=== PATIENT | male | born 1950 | race Caucasian/White ===

== ENCOUNTER 2020-01-23 11:40 | Inpatient (IN) | payer OTHER ==
[~2020-01-23] VITALS: Ht 182.9 cm; Wt 106.6 kg
[2020-01-23] VITALS (10 sets, daily range): BP systolic 145–173; BP diastolic 74–91
[2020-01-23] MEDS ORDERED: ALLOPURINOL 10100 M2 PO (11:56)
[2020-01-23] MEDS ORDERED: PRINIVIL20 M1 PO (11:57)
[2020-01-23] MEDS ORDERED: PREDNISONE 5 MG5 M1 PO (11:57)
[2020-01-23] MEDS ORDERED: ASA81BEC PO (11:57)
[2020-01-23] MEDS ORDERED: ZETIA10 MG PO (11:58)
[2020-01-23] MEDS ORDERED: FISH OIL 1,0001 EAC9 PO (11:58)
[2020-01-23] MEDS ORDERED: VITAMIN D310 MC2 PO (11:58)
[2020-01-23 12:04] LABS: URINE BILIRUBIN NEGATIVE (Negative); URINE BLOOD 1+ (Negative); URINE CLARITY CLEAR; URINE COLOR YELLOW; URINE GLUCOSE-RANDOM* NEGATIVE (Negative); URINE KETONES NEGATIVE (Negative); URINE LEUKOCYTES-REFLEX TRACE (Negative); URINE NITRITE-REFLEX NEGATIVE (Negative); URINE PROTEIN (DIPSTICK) 1+ (Negative); URINE UROBILINOGEN 0.2 E.U./dl (0.2-1.0)
[2020-01-23 12:12] LABS: BACTERIA-REFLEX 1-9 Few /HPF (None Seen); CASTS None Seen /LPF (None Seen); CRYSTALS None Seen /LPF (None Seen); SQUAMOUS 0-3 Few /LPF (0-3); URINE RBC None Seen /HPF (0-2); URINE WBC-REFLEX 0-5 Rare /HPF (0-5)
[2020-01-23 12:18] LABS: ABSOLUTE NEUTROPHILS 9.2 thou/uL (1.4-8.2); BASOPHILS 0.4 % (0.0-2.0); EOSINOPHILS 0.6 % (0.0-3.0); HEMATOCRIT 44.1 % (42.0-52.0); LYMPHOCYTES 11.9 % (24.0-44.0); MCH 29.5 pg (26.0-34.0); MCHC 33.9 g/dL (28.0-37.0); MONOCYTES 8.4 % (1.0-8.0); PLATELET COUNT 199 thou/uL (150-400); POLYS 78.7 % (36.0-66.0); RBC 5.07 mil/uL (4.50-6.00); RDW 14.5 % (10.5-14.5); WBC 11.7 thou/uL (4.0-11.0)
[2020-01-23 12:25] LABS: CALCIUM 9.9 mg/dL (8.5-10.1); CREATININE 1.2 mg/dL (0.7-1.3); POTASSIUM 4.2 mmol/L (3.5-5.1)
[2020-01-23 12:32] LABS: ALBUMIN 3.8 g/dL (3.4-5.0); TOTAL BILIRUBIN 2.7 mg/dL (<0.1-1.0)
[2020-01-24 00:44] VITALS: BP 164/78
--- NOTE | 2020-01-24 02:31 | NUR ---
PT CARE ASSUMED WHEN PT WAS RETURNING FROM THE SURGERY.PT IS A/O X4.PT IS ON ICE CHIPS AND SIPS OF FLUIDS WITH MEDS.PT C/O OF PAIN AND PAIN MANAGED WITH HYDROCODONE.PT HAD REMOVAL OF LT 3RD NAIL AND APPENDECTOMY WITH 3 LAP SITE I/C/D.PT IS ON 2L OF O2 NASAL CANULA.PT USED URINAL.WILL CONTINUE TO MONITOR POC
[2020-01-24 04:21] LABS: HEMATOCRIT 41.8 % (42.0-52.0); HEMOGLOBIN 13.7 gm/dL (14.0-18.0); MCH 28.7 pg (26.0-34.0); MCHC 32.8 g/dL (28.0-37.0); MCV 87.5 fL (80.0-100.0); RBC 4.78 mil/uL (4.50-6.00); RDW 14.6 % (10.5-14.5); WBC 12.3 thou/uL (4.0-11.0)
[2020-01-24 04:38] LABS: CALCIUM 8.8 mg/dL (8.5-10.1); CREATININE 1.2 mg/dL (0.7-1.3); POTASSIUM 3.9 mmol/L (3.5-5.1); TOTAL BILIRUBIN 3.4 mg/dL (<0.1-1.0)
[2020-01-24 07:25] VITALS: BP 137/84
--- NOTE | 2020-01-24 10:25 | NUR ---
Received awake on bed. Due medications given as prescribed, able to swallow meds w/o difficulty. On room air. Vital signs stable. On nothing per orem except medications and sips of water; ice chips given as well- a/w rounds from surgeon re: progressing diet. A+Ox4. Able to use urinal to pass urine; continent. With D5W0.45%NS+10meq at 80cc/hr, infusing well at L upper arm. Visited by relative today. With 3 abdominal lap sites with bandaid, dressing C/D/I.
[2020-01-24 14:55] VITALS: BP 136/84
[2020-01-24 17:12] LABS: DIRECT BILIRUBIN 0.4 mg/dL (<0.1-0.2); TOTAL BILIRUBIN 3.3 mg/dL (<0.1-1.0)
[2020-01-24 18:56] VITALS: BP 111/78
--- NOTE | 2020-01-25 02:13 | NUR ---
PT CARE ASSUMED WITH FAMILY MEMBERS IN THE RPPM AT 1900.PT ON ROOM AIR.PT IS A/O X4.PT IS UP WITH X1 ASSIST.PT IS ON CLEAR LIQUID DIET .PT IV ACCESS ON FARRAH WITH D5W 0.45NS KCL 10MEQ AT 80CC/HR AND ZOSYN.PT DENIED N/V.PT USES URINAL.PT REFUSED FLATUS AND URINATE OK.WILL CONTINUE POC TILL END OF SHIFT
[2020-01-25 05:19] LABS: HEMATOCRIT 42.2 % (42.0-52.0); HEMOGLOBIN 13.6 gm/dL (14.0-18.0); MCH 28.4 pg (26.0-34.0); MCHC 32.2 g/dL (28.0-37.0); MCV 88.1 fL (80.0-100.0); RBC 4.79 mil/uL (4.50-6.00); RDW 14.7 % (10.5-14.5); WBC 11.8 thou/uL (4.0-11.0)
[2020-01-25 07:27] VITALS: BP 141/79
--- NOTE | 2020-01-25 10:22 | NUR ---
Received awake on bed. Due medications given as prescribed, able to swallow meds w/o difficulty. On room air. On clear liquid diet- offered but pt prefers to have ice chips for now, will inform nurse once she wants any from the clear liquid menu. With daughter at the bedside. Continent with urine, still no flatus and bowel movement noted. With d50.45%NS + 10meq KCL at 80cc/hr, infusing well at 80cc/hr on his Left upper arm. With 3 abdominal lap sites, with bandaid on, dressing C/D/I. Complained of pain and nausea, PRN meds given as prescribed. With SCDs on. Assisted in ADLs. Pt complained of bloatedness and with abdominal distention noted- Called Dr Forbes's office at 9:51, assistant secretary said Dr Forbes is currently in surgery but will let him know about it- pt updated as well. To continue monitoring patient.
--- NOTE | 2020-01-25 10:48 | NUR ---
PT ADMITTED RELATED TO ACUTE APPENDICITIS. PT IS POD# 2. CM MET WITH PT AND DTR LANIE AT BEDSIDE THIS DAY. PT IS A&O X4. CM ROLE INTRODCUED. PT INDICATED HE LIVES IN A HOUSE ON [place] WITH NO STEPS TO ENTER AND NO STEPS INSIDE. 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 PT INDICATED NO DME OR HH HX. PT IS STILL ON CLEAR LIQUIDS AND ABD IS STILL DISTENDED. CM TO FOLLOW INDICATED WITH DC PLANNING.
--- NOTE | 2020-01-25 16:07 | PATH ---
[facility] [address] [place] [address] PATHOLOGY RPT PROCEDURE Name: TAY DEVINE Room #: 449-I ADM IN M.R.#: [id number] Admission: 01/23/20 Date of : 50 Discharge: Report #: [id number] Path Case #: [id number] L[facility] Accession Number: [id number] . 01 Material submitted: . appendix - APPENDIX . 01 Clinical history: . acute appendicitis . 02 Diagnosis: Appendix, appendectomy: - Marked acute appendicitis along with marked serositis and congestion. - Fibrous obliteration. (IUV:pit 01/25/2020) . QTP 01/25/2020 1417 Local . 02 Electronically signed: . Cheryle Dinh MD, Pathologist NPI- [id number] . 01 Gross description: . The specimen is received in formalin, labeled "Tay Devine, appendix" and consists of an appendix measuring 5.0 cm in length and up to 0.8 cm in diameter with mesoappendix measuring 1.8 cm thick. The serosa is markedly hemorrhagic with fibrous adhesions. The margin is closed with a line of ama and inked black. Sectioning reveals a hemorrhagic lumen with no gross lesions. Grips sections are submitted in A1. (SDY; 01/24/2020) SYU/SYU 01/24/2020 1723 Local . 02 Pathologist provided ICD-10: K35.80 . 02 CPT . 589145 Specimen Comment: A courtesy copy of this report has been sent to [phone] Specimen Comment: Report sent to Performed at: [address], [place] [id number] MD Pedro Gallagher MD Phone: [phone] Performed at: [address] [id number] MD Cheryle Dinh MD Phone: [phone]
[2020-01-25 16:30] VITALS: BP 152/80
[2020-01-25 19:40] VITALS: BP 119/67
[2020-01-26 05:58] LABS: HEMATOCRIT 40.1 % (42.0-52.0); HEMOGLOBIN 12.9 gm/dL (14.0-18.0); MCH 28.5 pg (26.0-34.0); MCHC 32.2 g/dL (28.0-37.0); MCV 88.3 fL (80.0-100.0); RBC 4.55 mil/uL (4.50-6.00); RDW 14.5 % (10.5-14.5); WBC 10.3 thou/uL (4.0-11.0)
[2020-01-26 06:09] LABS: CALCIUM 8.4 mg/dL (8.5-10.1); CREATININE 1.6 mg/dL (0.7-1.3); POTASSIUM 4.3 mmol/L (3.5-5.1)
--- NOTE | 2020-01-26 07:20 | NUR ---
ASSUMED PT CARE AROUND 1914. AXOX4. IV INFILTRATED RA. ELEVATED AND ICE PACKED. IV RESITED TO LFA 20G. PT REPORTS PASSING GAS. KEPT NPO. NO S/S ACUTE DISTRESS NOTED OR REPORTED AT THIS TIME. CARE TRANSFERRED TO INCOMING RN AT THIS TIME.
[2020-01-26 07:35] VITALS: BP 128/78
[2020-01-26 12:40] VITALS: BP 144/85
--- NOTE | 2020-01-26 13:25 | O ---
[facility] [place] [address] OPERATIVE REPORT Name: TAY DEVINE Room #: 449-I ADM IN M.R.#: [id number] Admission: 01/24/20 Attend Phys: Guille Forbes MD Discharge: Date of : 50 Report #: [id number] THIS REPORT FOR: cc: Rj Browning MD, Stanley P. MD Chu, Peter Y. MD ~ CC: Guille Browning DATE OF SERVICE: 01/23/2020 PREOPERATIVE DIAGNOSES: 1. Acute appendicitis. 2. Injury to the left third fingernail. POSTOPERATIVE DIAGNOSES: 1. Acute suppurative appendicitis with localized ileus. Possible microperforation. 2. Injury to the left fingernail. PROCEDURES PERFORMED: 1. Laparoscopic appendectomy. 2. Removal of left third fingernail. SURGEON: Guille Forbes MD ANESTHESIA: General anesthesia. COMPLICATIONS: None. ESTIMATED BLOOD LOSS: 5 mL. DESCRIPTION OF PROCEDURE: With the patient under general anesthesia, abdomen was prepped and draped in sterile fashion. The patient urinated prior to surgery. No Purvis was placed. IV antibiotic was administered preoperatively. Abdomen was prepped and draped in sterile fashion. Timeout was performed. A 0.25% Marcaine was used to anesthetize the skin infraumbilically, 2 cm incision was made. Fascia was grasped with hemostat. Fascia was then opened under visualization, 0 Vicryl suture placed on the fascia edges. Fascia was lifted anteriorly, Veress needle was then placed through the peritoneum. Abdominal cavity was insufflated with CO2. After creating pneumoperitoneum pressure of 15, a 12 mm trocar was placed through the already divided fascia through the peritoneum under visualization. No harm to underlying tissue. The patient did have localized ileus in the right lower quadrant. Small bowel was moderately distended. The patient was placed in Trendelenburg position, right side tilted [facility] [address] [place] [address] OPERATIVE REPORT Name: TAY DEVINE Room #: 449-I [facility].#: [id number] Admission: 01/24/20 Attend Phys: Guille Forbes MD Discharge: Date of : 50 Report #: [id number]. It was noted that there was exudate covered by the small intestine. The small intestine was able to be dissected free bluntly off of the pelvis and then the appendix was then identified. The appendix was covered by the small bowel. There is scant cloudy fluid present. There is also exudate right around the appendix. Possibly, a small amount of purulent fluid present. No definitive site of rupture, but possible microperforation is present. The small bowel was freed up completely. There is inflammation of the small bowel and decreased peristalsis. Irrigation was performed during the freeing of the bowel over the appendix. The bowel was not harmed during this procedure. Some of the exudate over the surface of bowel was peeled off. The appendix was about 2 inches in length. The mesoappendix was thickened. The entire appendix is red, the base is pretty normal. The mesoappendix was divided with Harmonic scalpel in serial manner, approximately the proximal third of the appendix at this point, though I can identify and see the mesoappendix. Once I got to the appendix, dissection was then carried along the edge of the appendix to the base. There was lateral peritoneum on the appendix, I was able to free and this also allowed me to free the cecum. No harm to the cecum. The appendix was isolated at the base. At this point, an 11 mm scope was changed to a 5 mm placed through the inferior 5 mm trocar. The appendix was grasped with a grasper through the upper 5 mm trocar. Endo-RAVEN was placed through the 12 mm infraumbilical trocar. This was placed across the base of the appendix. After closing the RAVEN and waiting about 10 seconds, the RAVEN was deployed. Well-formed staple lines were identified. The appendix was placed in a specimen bag, retrieved through the 12 mm trocar without difficulty. Specimen sent to pathology. Irrigation was performed, no bleeding was identified. The staple line was intact. Irrigation was used to clean this area out thoroughly. Irrigation fluid was aspirated out. The patient was then flattened out. Trocars were removed. CO2 was evacuated as much as possible. Fascia defect at the cutdown site was closed with [id number] 0 Vicryl x 2. Skin was closed with 5-0 PDS in interrupted fashion. Steri-Strip, Band-Aids applied. The patient's left hand was then isolated. This was cleaned with Betadine. The patient has smashed his finger as part of his stone work and elevated the entire nail off. At the base of the nail, the nail was and old hematoma was identified. The nail was then easily lifted off. The attachments to the sides and front were trimmed without difficulty using a sharp scissor. The base is clean. Antibiotic ointment was placed over the base. Band-Aid was applied. The patient tolerated the procedure well and was taken to recovery room. <ELECTRONICALLY SIGNED> By: Guille Forbes MD 01/26/20 1325 2222 2312 Guille Forbes MD /nt
--- NOTE | 2020-01-26 13:58 | NUR ---
CARE TEAM INDICATED THAT PT IS PROGRESSING SLOWLEY TOWARD GOAL OF DISCHARGE. IT IS ANTICPATED THAT PT WILL LIKELY BE MEDICALLY STABLE TO DC HOME TOMORROW. CM TO FOLLOW INDICATED WITH DC PLANNING.
--- NOTE | 2020-01-26 15:49 | NUR ---
ASSUMED PATIENT CARE AT 1540. PATIENT TRANSFERRED FROM , REPORT REC'D FROM ZEN. PATIENT IS CONTENT AND SETTLED INTO HIS ROOM.
[2020-01-26 19:59] VITALS: BP 139/83
--- NOTE | 2020-01-27 04:34 | NUR ---
Assumed pt care at 1900. A/OX4,VSS. Pt is up ad robby w/o difficulties. Denies pain, N/V on assessessment. Pt passing flatus and had a small BM, abd less distended and pt verbalizes feeling a little better.Continues to be NPO except icechips. IVF infusing via LFA w/o problems. Pt encouraged to call for help as needed. Resting w/o distress noted at this time, will continue to monitor pt.
[2020-01-27 05:17] LABS: HEMOGLOBIN 11.8 gm/dL (14.0-18.0); MCH 28.8 pg (26.0-34.0); MCHC 32.8 g/dL (28.0-37.0); MCV 87.7 fL (80.0-100.0); RBC 4.11 mil/uL (4.50-6.00); RDW 14.4 % (10.5-14.5); WBC 8.4 thou/uL (4.0-11.0)
[2020-01-27 05:21] LABS: CALCIUM 8.1 mg/dL (8.5-10.1); CREATININE 1.2 mg/dL (0.7-1.3); POTASSIUM 3.9 mmol/L (3.5-5.1)
[2020-01-27 07:25] VITALS: BP 155/85
[2020-01-27 15:30] VITALS: BP 150/78
[2020-01-27 19:35] VITALS: BP 167/92
--- NOTE | 2020-01-27 19:57 | NUR ---
ASSUMED CARE OF PATIENT AT 0715, PATIENT ALERT AND ORIENTED X 4. UP AD BRYCE, AMBULATES IN HALLWAYS. NO C/O PAIN OR NAUSEA THIS SHIFT. DR BLEVINS HERE CHANGED DIET TO CLEAR LIQUIDS. 3 LAP SITES MIDLINE ABDOMEN AREA. LEFT FOREARM IV WITH D51/2 NS WITH 10 KCL AT 80CC/HR IV FLUIDS. IV FLUIDS CHANGED TO 40CC/HR. POSSIBLE D/C ON THURSDAY PER FELICITY. WILL CONTINUE TO MONITOR.
[2020-01-27 22:05] VITALS: BP 141/77
--- NOTE | 2020-01-28 04:03 | NUR ---
PATIENT ALERT AND ORIENTED X4. UP ADLIB IN HALLWAY. IVF INFUSING W/O COMPLICATION AT NEW RATE OF 40/HR. COOPERATIVE WITH CARE. DENIES PAIN. RESTING QUIETLY. WILL MONITOR.
--- NOTE | 2020-01-28 14:20 | NUR ---
PT IS AOX4, VSS, IV S/L, PT IS TOLERATING DIET WITHOUT N/V. PT IS UP AD BRYCE, 3 INCISION MIDLINE ARE CDI. PT CALLS APPROPRIATELY, WILL CONTINUE TO MONITOR.
[2020-01-28 19:41] VITALS: BP 149/83
--- NOTE | 2020-01-29 04:33 | NUR ---
PATIENT ALERT AND ORIENTED X4. UP ADLIB IN ROOM AND HALLWAY. VERY PLEASANT AND COOPERATIVE. TOLERATING SOFT DIET PER AM NURSE. DENIES PAIN. THREE BANDAID'S ON ABDOMEN DRY AND INTACT. PATIENT IS LOOKING FORWARD TO POSSIBLE DISCHARGE TODAY. WILL MONITOR.
[2020-01-29 07:15] VITALS: BP 160/87
[2020-01-29 11:57] VITALS: BP 160/87
--- NOTE | 2020-01-29 12:41 | NUR ---
ASSUMED PT CARE AT 0700. PT IS AOX4, VSS, NO C/O PAIN. PT TOLERATING DIET WITHOUT N/V. PT RECEIVED DISCHARGE ORDERS TO GO HOME, NO PRESCRIPTIONS. IV REMOVED. PT BELONGINGS ARE PACKED TO GO HOME. WILL TRANSPORT HOME IN CAR.
== END 2020-01-29 13:23 | disposition home or self-care (01) | DRG 339 ==
LOC: ER 11:40 → 4W 13:38 → EROBS 13:38 → 4W 13:38 → TBA 13:38 → 4W 15:17 → TBA 15:20 → 4W 18:28 → 4N 01-26 15:43
PROVIDERS: Nurse Practitioner Family; ADMIT Surgery
PROC: 0HBRXZZ Excision of Toe Nail, External Approach (ICD-10-PCS; principal; 2020-01-23)
PROC: 0DTJ4ZZ Resection of Appendix, Percutaneous Endoscopic Approach (ICD-10-PCS; principal; 2020-01-23)
DX: K35.32 Acute appendicitis with perforation, localized peritonitis, and gangrene, without abscess (principal); K91.30 Postprocedural intestinal obstruction, unspecified as to partial versus complete; I10 Essential (primary) hypertension; M10.9 Gout, unspecified; Z79.82 Long term (current) use of aspirin; Z79.899 Other long term (current) drug therapy; S69.92XA Unspecified injury of left wrist, hand and finger(s), initial encounter; X58.XXXA Exposure to other specified factors, initial encounter; Y93.89 Activity, other specified; Y92.89 Other specified places as the place of occurrence of the external cause; Y99.8 Other external cause status
CPT/HCPCS: 10040; 10091; 50010; 50101; 50243; 50246; 50249; 50411; 50455; 50555; 50558; 51489; 53307; 53310; 53312; 53335; 56525; 56526; 62110; 62900; 70005

== ENCOUNTER → 2020-05-17 | Outpatient (CLI) | payer OTHER ==
[~2020-05-17] MED LIST: ALLOPURINOL 10100 M2 PO; ASA81BEC PO; FISH OIL 1,0001 EAC9 PO; PREDNISONE 5 MG5 M1 PO; PRINIVIL20 M1 PO; VITAMIN D310 MC2 PO; ZETIA10 MG PO
== END ==
LOC: SJCVC 09:05
PROVIDERS: ATTEND Internal Medicine Cardiovascular Disease
DX: I49.3 Ventricular premature depolarization (principal); I10 Essential (primary) hypertension; E78.00 Pure hypercholesterolemia, unspecified; E78.5 Hyperlipidemia, unspecified; M10.9 Gout, unspecified; Z79.82 Long term (current) use of aspirin; Z79.899 Other long term (current) drug therapy

== ENCOUNTER → 2021-05-20 | Outpatient (CLI) | payer OTHER | LOC: CAT 14:38 | PROVIDERS: ATTEND Internal Medicine Cardiovascular Disease | DX: Z13.6 Encounter for screening for cardiovascular disorders (principal) ==

== ENCOUNTER → 2021-05-20 | Outpatient (CLI) | payer OTHER | LOC: SJCVC 13:36 | PROVIDERS: ATTEND Internal Medicine Cardiovascular Disease | DX: I49.3 Ventricular premature depolarization (principal); R00.1 Bradycardia, unspecified; R06.09 Other forms of dyspnea; E78.00 Pure hypercholesterolemia, unspecified; I10 Essential (primary) hypertension; M10.9 Gout, unspecified; Z79.82 Long term (current) use of aspirin; Z79.899 Other long term (current) drug therapy ==

== ENCOUNTER → 2021-06-04 | Outpatient (CLI) | payer OTHER | LOC: SJCVCIMAG 12:58 | PROVIDERS: ATTEND Internal Medicine Cardiovascular Disease | DX: I49.3 Ventricular premature depolarization (principal); R06.09 Other forms of dyspnea; I10 Essential (primary) hypertension; E78.5 Hyperlipidemia, unspecified; E78.00 Pure hypercholesterolemia, unspecified; I25.10 Atherosclerotic heart disease of native coronary artery without angina pectoris; M10.9 Gout, unspecified; Z79.82 Long term (current) use of aspirin; Z79.899 Other long term (current) drug therapy; Z88.8 Allergy status to other drugs, medicaments and biological substances; Z88.1 Allergy status to other antibiotic agents ==

== ENCOUNTER 2021-06-20 14:10 | Observation (INO) | payer OTHER ==
[~2021-06-20] VITALS: Ht 182.9 cm; Wt 102.1 kg
[2021-06-20 09:09] VITALS: BP 137/90
--- NOTE | 2021-06-20 13:25 | CATHLAB ---
[facility] [place] [address] INVASIVE PROCEDURE REPORT Name: TAY DEVINE Room #: PRE REYNAKeri BryantMagalyZafarMagaly#: [id number] Admission: Attend Phys: Duc Carter MD Discharge: Date of : 50 Report #: [id number] THIS REPORT FOR: cc: Rj Browning MD, Stanley P. MD Park, Jin S. MD ~ APPROVED REPORT Study performed: 06/20/2021 09:39:56 Patient Details Patient Status: Out-Patient Room #: The patient is a 70 year-old male Event Personnel Duc Carter Director Sales Training, Breanna Inman RN RN, Cindy Villarreal Monitor, Meka Valero RTR, BOARD LAYER Scrub Procedures Performed Art Access - R femoral artery* Left Heart Cath w/or w/o Coronaries [id number] [facility] Place w/wo Plasty Single RCA [id number] Hemostasis w/ Mynx 94460 Initial Mod Sed Same Phys/QHP Gr5y 460002 48188 Mod Sed Same Phys/QHP Ea 950348 Indication Dyspnea, Unstable angina , Positive stress test Risk Factors Hypercholesterolemia, Hypertension, Has a history of intolerance to statins. Procedure Narrative The Right Groin^ was infiltrated with 1% Lidocaine subcutaneous anesthesia. A PINNACLE 4FR Sheath #[id number] sheath was inserted into the RFA 4F^. Coronary angiography was performed using coronary diagnostic catheters. The right coronary system was accessed and visualized with a JR4 catheter. The left coronary system was accessed and visualized with a JL4 catheter. There was no hematoma. Intraoperative Conscious Sedation Sedation start time: 101 Case end Time: 111 Fentanyl 50 mcg Versed 1 mg [facility] [address] [place] [address] INVASIVE PROCEDURE REPORT Name: TAY DEVINE Room #: PRE [facility]#: [id number] Admission: Attend Phys: Duc Carter MD Discharge: Date of : 50 Report #: [id number] Fluoro Time: 7.90 minutes Dose: DAP 13526.90 cGycm2 Contrast Type and Amount: Omnipaque 155 ml Coronary Angiography The patient's coronary anatomy is co- dominant. Diagnostic Cath Left Main The left main artery is a large-caliber vessel, patent with no flow-limiting lesions. LAD The LAD is a moderate-sized caliber vessel, traverses the anterior wall and wraps around the apex. There is mild to moderate diffuse disease in the proximal segment, 30 to 40% with mild calcifications. Diagonal 1 This is a moderate-sized caliber vessel with a borderline stenosis proximally, 50%. Diagonal 2 This is a small to moderate-sized caliber vessel, patent with no flow-limiting lesions. Circumflex The left circumflex artery is a moderate-sized caliber vessel with mild disease proximally, 30%. OM1 This is a small to moderate-sized caliber vessel, patent with no flow-limiting lesions. OM2 This is a moderate-sized caliber vessel, patent with no flow-limiting lesions. This divides into 2 branches. OM3 This is a small caliber vessel, patent with no flow-limiting lesions. Right Coronary The RCA has a severe occlusion in the midsegment, 80%. R PDA This is a moderate-sized caliber vessel, patent with no flow-limiting lesions. Left Ventriculography Left Ventriculography was not performed. Ejection Fraction was >55% based off patient's Echocardiogram. An LVEDP was measured and there is no gradient across the outflow tract. Hemodynamics The aortic pressure is 180/67 mmHg with a mean of 55 mmHg. The left ventricular pressure is 188/15 mmHg with a mean of mmHg. The left ventricular end diastolic pressure is 29 mmHg. PCI Technique Lesion Percutaneous coronary intervention was performed on the mid right coronary artery. The lesion stenosis prior to intervention was 80% with ROBYN 3 flow. A VISTA 6FR JR 4 #[id number] Guide Catheter was used to [facility] [address] [place] [address] INVASIVE PROCEDURE REPORT Name: TAY DEVINE Room #: PRE [facility].Magaly#: [id number] Admission: Attend Phys: Duc Carter MD Discharge: Date of : 50 Report #: [id number] engage the RCA ostium. A Luge Wire .014 x 182CM #[id number] Interventional Guidewire was used to cross the lesion. BALLOON DILATION A Balloon catheter Euphora RX 2.25 x 12 #[id number] was inserted and inflated up to 10.00atm for 19seconds. STENT DEPLOYMENT A stent RESOLUTE IBIS RX 2.75 X15 #[id number] was inserted and inflated up to 12.00atm for 15seconds. POST STENT DEPLOYMENT BALLOON DILATION A Balloon catheter Euphora NC RX 2.75 x 12 #[id number] was inserted and inflated up to 18.00atm for 22seconds. Final angiography reveals 5 % stenosis with ROBYN 3 flow. Conclusion 1. Successful insertion of a drug-eluting stent into the mid RCA stenosis. 2. There is mild to moderate disease in the LAD and first diagonal artery. 3. There is normal LV systolic function. 4. Recommend dual antiplatelet therapy and aggressive risk factor management. <ELECTRONICALLY SIGNED> By: Duc Carter MD 06/20/21 1325 1325 1325 Duc Carter MD /INF
[~2021-06-20 14:10] MED LIST changes: +EFFIENT10 MG PO
[2021-06-20 15:06] VITALS: BP 139/86
--- NOTE | 2021-06-20 15:16 | NUR ---
ADMISSION NOTE: PT BROUGHT UP FROM SPECIALTY MOLDER, ALERT AND ORIENTED X4, DENIES CHEST PAIN, NUMBNESS AND TINGLING. RIGHT GROIN SITE CHECKED, CLEAN, DRY AND INTACT, NO SIGNS OF HEMATOMA. USER EXPERIENCE DEVELOPER PLACED ON PT, SR. ADMISSION AND ASSESSMENT COMPLETED. SKIN INTACT, PT OREINTED TO ROOM. CONSENTS SIGNED BY PT. PT TO BATHROOM INDEPENDENTLY. CALL LIGHT AND TABLE WITHIN REACH. PT VISITING. DENIES ANY NEEDS. WILL CONTINUIE TO MONITOR.
[2021-06-20 19:12] VITALS: BP 128/68
[2021-06-21 06:21] VITALS: BP 131/72
[2021-06-21] MEDS ORDERED: EFFIENT10 MG PO (07:45)
[2021-06-21 08:00] VITALS: BP 158/80
--- NOTE | 2021-06-21 09:04 | EKG ---
[address] [place] [address] ELECTROCARDIOGRAM REPORT Name: TAY DEVINE Room #: 201-P [facility].#: [id number] Admission: 06/20/21 Attend Phys: Duc Carter MD Discharge: Date of : 50 Report #: [id number] [facility] Test Date: 2021-06-21 Test Time: 07:22:23 Pat Name: TAY DEVINE Department: Room: 201 P Gender: M Candy Catcher: ALLIE : 1950 Requested By: Duc Carter Order Number: [id number] MD: Fco Sheikh Measurements Intervals [place] Rate: 55 P: 11 IA: 145 QRS: 18 QRSD: 107 T: 27 QT: 442 QTc: 423 Interpretive Statements Sinus rhythm Poor R wave progression No previous ECG available for comparison Electronically Signed On 06-21-2021 9:04:48 CDT by Fco Sheikh [email or web address] <ELECTRONICALLY SIGNED> By: Fco Sheikh MD, [facility] 06/21/21 0904 0722 07 Fco Sheikh MD, FAC /EPI
[2021-06-21 11:05] VITALS: BP 158/80
== END 2021-06-21 16:22 | disposition home or self-care (01) ==
LOC: CATH 14:10 → 2N 14:11 → CATH 14:13 → 2N 06-21 16:22
PROVIDERS: ADMIT Internal Medicine Cardiovascular Disease; ATTEND Internal Medicine Cardiovascular Disease
DX: I25.110 Atherosclerotic heart disease of native coronary artery with unstable angina pectoris (principal); I10 Essential (primary) hypertension; E78.5 Hyperlipidemia, unspecified; M10.9 Gout, unspecified; Z90.49 Acquired absence of other specified parts of digestive tract; Z79.82 Long term (current) use of aspirin; Z79.899 Other long term (current) drug therapy; Z88.8 Allergy status to other drugs, medicaments and biological substances

== ENCOUNTER → 2021-12-30 | Outpatient (CLI) | payer OTHER | LOC: SJCVCIMAG 09:23 | PROVIDERS: ATTEND Internal Medicine Cardiovascular Disease | DX: R94.31 Abnormal electrocardiogram [ECG] [EKG] (principal); I34.0 Nonrheumatic mitral (valve) insufficiency; I10 Essential (primary) hypertension; I25.10 Atherosclerotic heart disease of native coronary artery without angina pectoris; E78.5 Hyperlipidemia, unspecified; R00.1 Bradycardia, unspecified; E78.00 Pure hypercholesterolemia, unspecified; Z79.899 Other long term (current) drug therapy; Z79.82 Long term (current) use of aspirin; Z88.8 Allergy status to other drugs, medicaments and biological substances ==